=== PATIENT | male | born 1970 | race Caucasian/White ===

== ENCOUNTER 2018-10-21 20:42 | Emergency (ER) | payer OTHER ==
[2018-10-21] MEDS ORDERED: Lorazepam 2 MG/ML VIAL ONE (21:13)
[2018-10-21 21:19] LABS: #Basophils 0.1 thou/uL (0.0-0.2); #Lymphocytes 1.8 thou/uL (1.20-3.40); #Monocytes 0.5 thou/uL (0.11-0.59); #Neutrophils 7.3 thou/uL (1.40-6.50); %Eosinophils 0.4 % (0.0-10.0); %Lymphocytes 18.2 % (21.0-51.0); %Monocytes 5.4 % (0.0-10.0); %Neutrophils 75.1 % (42.0-75.0); Hemoglobin 16.6 g/dL (14.0-18.0); Mean Corpuscular HGB CONC 33.7 g/dL (32.0-36.0); Mean Corpuscular Hemoglobin 28.6 pg (27.0-31.0); Mean Corpuscular Volume 84.7 fL (78.0-98.0); Mean Platelet Volume 9.2 fL (7.4-10.4); Platelet Count 255 thou/uL (130-400); Red Blood Cell (RBC) Count 5.81 mill/uL (4.70-6.10); White Blood Cell (WBC) Count 9.7 thou/uL (4.8-10.8)
--- NOTE | 2018-10-21 21:30 | RAD ---
PORTABLE CHEST 10/21/18 PROVIDED CLINICAL HISTORY: Chest pain. FINDINGS: The cardiac and mediastinal silhouette is within normal limits. Patchy air space disease at the left lung base may reflect subsegmental atelectasis or infiltrate. The lungs appear otherwise clear. There is no pleural fluid or pneumothorax apparent. IMPRESSION: Left basilar opacity as above. Consider followup. POS: [facility]
[2018-10-21 21:45] LABS: ALT (SGPT) 31 U/L (8-55); AST (SGOT) 29 U/L (5-34); Acetaminophen Less than 6.0 mcg/mL (10.0-30.0); Albumin 4.5 g/dL (3.5-5.0); Alcohol Less than 10 mg/dL (Less than 10); Alkaline Phosphatase 94 U/L (40-150); Anion Gap 14 mmol/L (10-20); BUN (Urea Nitrogen) 11 mg/dL (8.9-20.6); Bilirubin, Total 0.5 mg/dL (0.2-1.2); Calc. Creatinine Clearance 0 mL/min (70-130); Calcium 9.9 mg/dL (7.8-10.44); Carbon Dioxide 26 mmol/L (22-29); Chloride 103 mmol/L (98-107); Estimated GFR-MDRD 90; Globulin 3.4 g/dL (2.4-3.5); Glucose 115 mg/dL (70-105); Potassium 3.4 mmol/L (3.5-5.1); Protein, Total 7.9 g/dL (6.0-8.3); Salicylate Less than 8.0 mg/dL (15.0-30.0); Sodium 140 mmol/L (136-145)
--- NOTE | 2018-10-21 22:45 | CT ---
CT PULMONARY ANGIOGRAM WITH IV CONTRAST AND 3D MIP RECONSTRUCTIONS 10/21/18 PROVIDED CLINICAL HISTORY: Chest pain. FINDINGS: Minimal vascular calcification including coronary calcium is demonstrated. The heart, pericardium and great vessels demonstrate an otherwise unremarkable CT appearance. There is no evidence for central or segmental pulmonary embolus. The lungs are free of significant opacity. There is no pleural fluid or pneumothorax apparent. The visualized portions of the upper abdomen appear unremarkable. The airwa y appears patent and of normal caliber. The osseous structures demonstrate no concerning lytic or rj stic lesions. IMPRESSION: No evidence for central or segmental pulmonary embolus. POS: [facility]
== END 2018-10-22 00:49 ==
LOC: EEVIPCON 20:42 → EDBD 20:42 → ERS 20:42
DX: F41.9 Anxiety disorder, unspecified (principal); I10 Essential (primary) hypertension
CPT/HCPCS: 36415; 71045; 71275; 80053; 80307; 82550; 84443; 84484; 85025; 85379; 93005; 96361; 96374; J2060